=== PATIENT | male | born 1990 | race Caucasian/White ===

== ENCOUNTER 2019-12-25 10:51 | Day surgery (SDC) | payer MEDICAID, SELFPAY ==
[2019-12-25] VITALS (8 sets, daily range): BP systolic 120–143; BP diastolic 78–101; PULSE 62–83; RESP 14–16; TEMP 36.4–37.2; O2SAT 96–100; BMI 25.3
[2019-12-25] MEDS: Lactated Ringers 1,000 ML 75 ML IV ×2 (11:51→15:39)
--- NOTE | 2019-12-25 13:10 | HP.PCM_ITS ---
History and Physical I have re-examined the patient. There are no clinical changes since date of exam. Intake Intake Visit Reasons: Right hand Accompanied by: self Is patient in pain?: Yes Pain scale (1-10): 3 Allergies Penicillins Allergy (Severe, Verified 12/20/19 11:03) Hives, swelling Medications naproxen sodium 220 mg capsule 220 mg PO BID PRN 12/20/19 [History Confirmed 12/20/19] HPI Right hand: Details: Parts of this documentation were recorded by a scribe, this documentation accurately reflects the service provided and the decisions made by me, PAUL Burton 12/20/19 1000. ANA TOM is a 29 year old M here today for right hand pain following an injury last weekend. 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 He has had swelling, pain, and stiffness ever since. We discussed the current risk associated COVID-19. While it is understood that there is a community spread of COVID 19 the risk of demetrio COVID-19 while at [facility] is very low, however, the risk cannot be completely mitigated because of the community spread of the disease. We discussed in detail the risk of exposure to and or potential harm posed by the COVID-19 virus with having a surgery/procedure at this time versus the risk of delaying the surgery/procedure. Is not possible to know either the risk of delaying the surgery procedure or chance of getting an infection with perfect accuracy, but a joint decision was made to proceed at this time with a schedule surgery/procedure as indicated on the consent form. Patient was notified that we will need to comply with any screening or testing [facility] wishes to perform or that surgery may be delayed for any positive results. Ortho Exam Right Wrist/Hand Skin/Wound: Yes Swelling, Yes Ecchymosis, Yes nail intact, Yes capillary refill normal Right Wrist: Yes ROM-Extension 0-60, ROM-Flexion 0-80, ROM-Pronation 0-80, ROM- Supination 0-90 and TTP Fracture site Sensation: Radial: I, Ulnar: I, Median: I WRIST: Inspection of the right hand shows some minor dorsal swelling around the fourth and fifth metacarpal region. He has minor ecchymosis noted as well. There is evident reproducible tenderness on palpation of the metacarpal shaft of the fourth digit. Some minor rotational changes as well. He does have normal sensation and normal capillary refill distal radial pulses. He has some stiffness of the wrist and other fingers due to immobilization but has good range of motion. Left Wrist/Hand Skin/Wound: Yes Swelling, Yes Ecchymosis Assessment & Plan Problems 1. Closed displaced fracture of shaft of fourth metacarpal bone of right hand, initial encounter S62.324A Plan Patient presents the office today for right fourth metacarpal fracture following an injury last weekend. Radiographs/images were taken today and reviewed with patient in the room showing evidence of a spiral/oblique fracture with evident shortening. At this time we discussed treatment options which include attempted closed reduction with casting and serial x-rays as we discussed this has a tendency to continue to shorten even after reduction. We also discussed the possibility of open reduction internal fixation with plate screws. 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 He had a previous injury on the left hand requiring ORIF and would like to proceed with surgical fixation of right fourth metacarpal fracture. Risks and benefits of the procedure were discussed with patient including blood clots, blood loss, infection, neurovascular injury, failure of procedure, loss of limb loss of life from anesthesia. Patient is aware of these risks and surgical consent was signed today. We also discussed risks of COVID-19 at this point which patient is understands will follow with his preoperative screening. At this time patient be notified by our office of the surgery date however would like to do this next week. He will do the time of surgery till the day before. He will receive phone calls from the surge department for preanesthesia/surgery testing. Patient agrees with the current plan and has no other questions at this time. This note was generated with [employer] dictation software. It may contain incorrect words, spelling, and punctuation that were not noted in checking the note before signing. Orders Orders: Hand Min 3 Views Today S62.309A, S69.91XA Coding Level of Care Code Off vis,new,level 3 Diagnoses Closed displaced fracture of shaft of fourth metacarpal bone of right hand, initial encounter S62.324A ??Encounter type: initial encounter ??Fracture type: closed ??Metacarpal location: shaft ??Fracture alignment: displaced
--- NOTE | 2019-12-25 13:13 | DCINST_ITS ---
Discharge Diet: No Restrictions - Elevate right arm above heart is much as possible, follow-up in 2 weeks Call with increased pain numbness and other issues right side Discharge Activity: May Not Drive May shower in (days): 1 Ice area for (Minutes): 20 - Every hour while awake. Weight Bearing Status: Weight bearing as tolerated Keep extremity elevated above heart level: Operative Extremity Call your doctor if your incision/area has: Continuous Slow Oozing, Sudden Increased Bleeding, Increased Pain/ Swelling, Increased Redness, Foul Smelling Discharge Call your doctor if you observe: Fever of 101 or Higher, Coldness, Increased Pain, Numbness or Tingling, Change in Color, Calf discomfort Allergies/Adverse Reactions: Allergies Penicillins Allergy (Severe, Verified 12/23/19 14:48) Hives, swelling Medications to take at Discharge naproxen sodium 220 mg capsule 220 mg PO BID PRN 12/20/19 Calcium Carbonate [Tums] 200 mg PO PRN PRN 12/23/19 Multivitamin 1 ea PO DAILY 12/23/19 Hydrocodone Bitart/Apap 5-325 [[place] 5MG-325MG] 1 - 2 tab PO Q6H PRN PRN 5 Days #40 tab 12/25/19 The following prescriptions were given: Hydrocodone Bitart/Apap 5-325 [[place] 5MG-325MG] 1 - 2 tab PO Q6H PRN PRN 5 Days #40 tab PRN Reason: Pain Transmission Status: Received by [id number] Primary Care Physician: PAMELA SALCIDO [Other] Test Results: Test results from this visit will be discussed in further detail at your follow- up appointment, if applicable. Please Follow Up With: Jsesica Palomo, DO - [phone]
--- NOTE | 2019-12-25 13:13 | OP.PCM_ITS ---
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 Risk benefits alternative surgery discussed with patient. Risk include but are not limited to blood loss, blood clot, infection, neurovascular, failure procedure, loss of life and loss of limb. Patient is aware like proceed with ORIF of the right fourth metacarpal Operative note Patient seen and examined preop pulmonary. Right hand was marked marked. Patient brought to the operating placed supine the operating table. Sign, anesthesia, antibiotics were administered. We then visualized the x-ray and fluoroscopy the image of the displaced fourth metacarpal fracture was also shortened. Timeout was performed then elevate exsanguinated the arm to a pressure of 250 torr. We then made our incision between the fourth and fifth interspace extending about the length of the metacarpal. We used 15 blade to cut the skin and dissected down tenotomies to level of the tendon extensor tendons which were and all neurovascular checks was well protected at all times. We then tested down to the periosteum periosteum was elevated off the fourth metacarpal shaft. We then able to visualize our fracture which is shortened malrotated. We then debrided back the unstable any unstable pieces and then irrigated the fracture site as well. We then picked out our 6 hole plate from the back table reduce the fracture and then [address] cortical screws through the plate into the bone. We had good alignment and a good cascade room at the end of the case. We then closed the periosteum over the plate with 3-0 Vicryl. We closed the skin with 3-0 Vicryl and the subcuticular in the skin with running 4-minute Monocryl. Sterile dressings and ulnar gutter splint was applied. Trach was deflated for total working time 53 minutes. Patient taught procedure well no complication shows recovery room in stable condition. Postoperative note Nonweightbearing right arm Follow-up in 2 weeks Call with increased pain numbness tingling or the use arise Dragon disclaimer this Hospital pharmacy has prescriptions This note was generated with [employer] dictation software. It may contain incorrect words, spelling, and punctuation that were not noted in checking the note before signing.
[2019-12-25] MEDS: Mupirocin Ointment 22gm Tube 1 APPLIC (14:06)
[2019-12-25] MEDS: Cefazolin 2 GM in 0.9% Normal Saline 100 ML IV (14:06)
--- NOTE | 2019-12-25 14:10 | RAD_ITS ---
STUDY: X-RAY - RIGHT HAND REASON FOR EXAM: ORIF fourth metacarpal fracture. TECHNIQUE: 5 intraoperative images of the hand. COMPARISON: Radiographs 12/20/2019. FINDINGS: There is an orthopedic plate and screws transfixing a fourth metacarpal diaphyseal fracture in anatomical alignment and position. Electronically Signed: Evaristo Garcia MD at 11:44 EDT Tel , Service support , RAD/Foot min 3 Views
[2019-12-25] MEDS: HYDROcodone Bitartrate/Apap 5/325 Tablet PO (16:50)
== END 2019-12-25 17:36 | disposition home or self-care (01) ==
LOC: SDC 10:56 → AC 10:57
PROVIDERS: Referring Provider Orthopaedic Surgery; Visit Provider Orthopaedic Surgery
PROC: (CPT 26615; principal; 2019-12-25 12:55)
DX: S62.324A Displaced fracture of shaft of fourth metacarpal bone, right hand, initial encounter for closed fracture (principal); Z11.59 Encounter for screening for other viral diseases; W22.8XXA Striking against or struck by other objects, initial encounter; Y93.9 Activity, unspecified; Y92.9 Unspecified place or not applicable
CPT/HCPCS: 01830; 26615; 73630; 76000; 87426; C1713; J7120; J2405

== ENCOUNTER 2020-02-07 11:30 | Outpatient (RCR) | payer MEDICAID, SELFPAY ==
--- NOTE | 2020-01-08 08:08 | HP.OTEVAL ---
Patient's Visit Information ANA TOM is a 29 year old M, referred to Occupational Therapy by Dr. Jessica Palomo DO, with a diagnosis of right 4th metacarpal fx. Date of Evaluation: 01/07/20 Occupational Therapist: Hannah Sorensen, MAYI/Boo, CHT - Subjective This 29 year old male was seen for OT eval with dx of right 4th Metacarpal fx. pt states he tried to stop a 55 gallon drum of apple cider on . pt states he went to ER and was notified it was broken. Pt did have to have sx on Dec.24. Pt states he has been casted since. and had cast removed today. pt states he is ok but cant move his hand. states some tingling at times. pt is left handed - Pain right hand 1 Pain Intensity Range: 4 - ROM MP: right LF 0/15 right RF 0/30 left LF 0/90 left RF 0/90 PIP: right LF 65 right RF -10/ 55 left LF 0/95 left RF 0/100 DIP: right LF 0/55 right RF 0/45 left LF 0/70 left RF 0/70 ROM Comments: pt demo with limited ROM of right composite fist due to limited LF and RF MCP flexion. 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 to increase pts ind. with ADls and IADls Goal:: pt will demo a increase in right LF and RF MCP ROM to 80* or greater to increase pts ability to form a composite fist for grasping objects by d/c. pt will demo the ability to form a composite fist to hold and recive coins without dropping them by d/c Goal:: pt will report pain no greater than 1/10 with use of right hand with ADLS and IADls by d.c Goal:: pt will demo understanding of scar mtg by end of 3rd session to decrease risk of scar adhesions to tendons. Goal:: pt will demo ind. donning/doffing of custom orthosis by end of 1st session. pt will demo understanding of orthosis skin care and use by end of 1st session. - Rehabilitation General Assessment: pt 1 week 6 days s/p from ORIF of right 4th metacarpal pt demo need of custom orthosis to allow for protection while fx is healing. pt demo with decrease in functional ROM and limited ability to use right hand with ADls and IADLs. pt demo need for skilled OT services 2x week for 6 weeks to return pt to PLOF. Today therapist brandon. custom orthosis for right hand to allow for fx healing- pt ed. in precautions and skin care. pt demo understanding. Therapist ed. pt on ROM of DIP, PIP and MCP motion. Therapy will progress pt as radha with ROM and PRE when cleared by . pt demo understanding and agree to POC. Rehabilitation Potential: Excellent - Anticipated Interventions A/AAROM/PROM, Strengthening, Scar Care, Triggerpoint Release, Desensitization, Sensory Retraining, Modalities, Orthoses, Joint Protection/Energy Conservation, Ergonomic Education - Visit Plan Frequency: 2x /Week Duration: 6 Weeks TEXT: Thank you for the opportunity to evaluate your patient. For Medicare and Medicare HMO plans, please review the plan of care and approve it. It will need to be FAXED BACK to us at [phone] for Medicare purposes. Please let me know if there are questions or concerns regarding this plan of care. Physician Signature: Date:
--- NOTE | 2020-01-31 11:33 | HP.OTREVAL ---
Dr. Jessica Palomo, DO, It has been my pleasure to treat ANA TOM over the last 8 visits for right 4th metacarpal fx. Please see the progress note below for an update on the occupational therapy plan of care! Subjective: pt arrives is 5 weeks s/p pt states he continues to bother him with work tasks because he forgets his hand is limited-. pt will see Dr. Cortes. Objective/Function: right RF MCP flex 75*. right LF MCP flex 75*. right RF PIP 110*. right LF PIP 93*. pt demo with gains in composite fist and digit ext. 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 therapist has advised pt to not lift more than 8# until cleared by . Plan Frequency: 1x/Week Duration: 3 Weeks Plan: pt can inititate PROM at 6 weeks if needed -. can initiate light strengthening at 6-8 weeks as needed unless cleared by Dr. cortes. Goals - Goals Patient Goals: Regain Mobility, Use Hand/Wrist/Arm Normally Again Goal:: in 6 weeks pt will demo a right last remodeler repairer strength of 45# or greater by d/c. to increase pts ind. with ADls and IADls Goal:: pt will demo a increase in right LF and RF MCP ROM to 80* or greater to increase pts ability to form a composite fist for grasping objects by d/c. pt will demo the ability to form a composite fist to hold and recive coins without dropping them by d/c Goal:: pt will report pain no greater than 1/10 with use of right hand with ADLS and IADls by d.c Goal:: pt will demo understanding of scar mtg by end of 3rd session to decrease risk of scar adhesions to tendons. Goal:: pt will demo ind. donning/doffing of custom orthosis by end of 1st session. pt will demo understanding of orthosis skin care and use by end of 1st session. Anticipated Interventions Anticipated Interventions: A/AAROM/PROM, Strengthening, Scar Care, Triggerpoint Release, Desensitization, Sensory Retraining, Modalities, Orthoses, Joint Protection/Energy Conservation, Ergonomic Education Please do not hesitate to contact me at [phone] by phone or if you have questions or concerns regarding this new plan of care! Sincerely, Hannah Sorensen, OTR/L, CHT
== END 2020-02-07 19:00 | disposition home or self-care (01) ==
LOC: OT 11:30
PROVIDERS: Referring Provider Orthopaedic Surgery; Visit Provider Orthopaedic Surgery
DX: Z47.89 Encounter for other orthopedic aftercare (principal)
CPT/HCPCS: 97110; 97140; 97166; 97530; 97760